=== PATIENT | female | born 1960 | race Two or more races ===

== ENCOUNTER → 2024-10-17 | Outpatient (CLI) | payer MEDICAID, SELFPAY ==
--- NOTE | 2024-10-17 10:30 | XR_ITS ---
Examination: Screening digital mammography, bilateral Computer aided detection 3-D breast Tomosynthesis, bilateral Date and time of exam: October 17, 2024 1018 hours Compared to mammograms dating to September 27, 2018 Indication: Screening Technique: Nonmagnified MLO, CC views of the breasts to been obtained, reconstructed from 3-D Tomosynthesis images. R2 computer aided detection program utilized for evaluation of suspicious masses and/or abnormal calcifications. 3-D Tomosynthesis images obtained. Findings: Scattered areas of fibroglandular density. Stable intramammary lymph nodes upper outer left breast Stable multiple right axillary lymph nodes No interval suspicious masses Impression: BI-RADS category II: Benign Findings. Recommend 1 year follow-up mammogram.
== END | disposition home or self-care (01) ==
LOC: CDIM 09:58
PROVIDERS: Referring Provider Nurse Practitioner Family; Visit Provider Nurse Practitioner Family
DX: Z12.31 Encounter for screening mammogram for malignant neoplasm of breast (principal); R92.323 Mammographic fibroglandular density, bilateral breasts
CPT/HCPCS: 77063; 77067

== ENCOUNTER → 2024-11-22 | Outpatient (CLI) | payer MEDICARE, MEDICAID, SELFPAY ==
--- NOTE | 2024-11-22 15:07 | XR_ITS ---
Examination: Knee, right , 3 views Technique: Knee AP, lateral, oblique 3 views Date and time of exam: November 22, 2024 at 1518 hours INDICATIONS: Knee pain months. FINDINGS: Advanced tricompartment osteoarthritis Severe narrowing medial joint space Small knee effusion No fracture IMPRESSION: Advanced tricompartment osteoarthritis
== END | disposition home or self-care (01) ==
PROVIDERS: PCP Nurse Practitioner Family; Referring Provider Nurse Practitioner Family; Visit Provider Nurse Practitioner Family
DX: M25.561 Pain in right knee (principal); M17.11 Unilateral primary osteoarthritis, right knee
CPT/HCPCS: 73562

== ENCOUNTER → 2025-03-06 | Outpatient (CLI) | payer OTHER, MEDICAID, SELFPAY ==
--- NOTE | 2025-03-06 14:18 | XR_ITS ---
EXAMINATION: Nasal bones 3 views TECHNIQUE: Cornell, right lateral left lateral nasal bones 3 views Date and time: March 06, 2025, 1437 hours FINDINGS: Orbital rims intact No blood in the maxillary antra No nasal bone fractures Maxilla mandible intact IMPRESSION: No acute facial fracture
== END | disposition home or self-care (01) ==
PROVIDERS: PCP Nurse Practitioner Family; Referring Provider Nurse Practitioner Family; Visit Provider Nurse Practitioner Family
DX: R04.0 Epistaxis (principal)
CPT/HCPCS: 70160

== ENCOUNTER → 2025-05-21 | Outpatient (CLI) | payer OTHER, MEDICAID, SELFPAY ==
--- NOTE | 2025-05-21 | XR_ITS ---
Examination: Lumbar spine, 5 views Technique: Lumbar spine AP, lateral, coned lateral lower lumbar spine, bilateral obliques 5 views Exam date and time: May 21, 2025, 1406 hours INDICATIONS: Patient fell 2 weeks ago with injury of the lower back, intense lower back pain FINDINGS: Severe osteopenia Fractures with depression superior endplates L2, L3 No cortical bone destruction Lumbar dextroscoliosis is 18 degrees IMPRESSION: Recommend CT scan lumbar spine follow-up to confirm acute compression fractures L2, L3
== END | disposition home or self-care (01) ==
PROVIDERS: PCP Nurse Practitioner Family; Referring Provider Nurse Practitioner Family; Visit Provider Nurse Practitioner Family
DX: S39.92XA Unspecified injury of lower back, initial encounter (principal); W19.XXXA Unspecified fall, initial encounter
CPT/HCPCS: 72110